=== PATIENT | male | born 1995 | race Caucasian/White ===

== ENCOUNTER 2017-06-20 12:02 | Emergency (ER) | payer SELFPAY ==
[~2017-06-20] VITALS: Ht 165.1 cm; Wt 65.0 kg
[2017-06-20 12:10] VITALS: BP 143/88; PULSE 111; RESP 16; TEMP 98.2; O2SAT 99
[2017-06-20] MEDS ORDERED: AZITHROMYCIN PWD FOR SUSP 1 GM PACKET PO ONE (12:45)
[2017-06-20] MEDS ORDERED: SODIUM CHLORIDE 0.9% FLUSH 10 ML FLUSH IVF PRN (12:45)
[2017-06-20] MEDS ORDERED: LIDOCAINE HCL 1% PF 30 ML VIAL XX ONE (12:45)
[2017-06-20] MEDS ORDERED: metroNIDAZOLE 500 MG TAB PO ONE (12:45)
--- NOTE | 2017-06-20 12:49 | PD ---
HPI Chief Complaint: Complaint Time Seen by Provider: 12:34 Travel History International Travel<30 days: No Contact w/Intl Traveler<30days: No Traveled to known affect area: No History of Present Illness HPI Patient comes emergency department with concerns for possible gonorrhea and chlamydia. Reports his partner tested positive yesterday and was treated. Patient denies any symptoms currently. Denies any dysuria, testicular pain, abdominal pain, penile discharge, back pain, or fevers. Patient denies doing anything for this prior to coming to the emergency department. Denies anything making symptoms better or worse. [facility] Past Medical History Medical History: Denies Significant Hx Social History Alcohol Use: No Tobacco Use: Yes Substance Use: No Allergies-Medications (Allergen,Severity, Reaction): Coded Allergies: No Known Allergies (Unverified , 06/20/17) Reported Meds & Prescriptions Reported Meds & Active Scripts Active No Active Prescriptions or Reported Medications Review of Systems Except as stated in HPI: all other systems reviewed are Neg Physical Exam Narrative GENERAL: Well-developed, well nourished, in no acute distress, and non-ill appearing. SKIN: Focused skin assessment warm and dry. HEAD: Atraumatic. Normocephalic. EYES: Pupils equal and round. EOMI. No scleral icterus. No injection or drainage. ENT: No nasal bleeding or discharge. Mucous membranes pink and moist. NECK: Trachea midline. Supple. No nuclear rigidity. RESPIRATORY: No accessory muscle use. No respiratory distress. GASTROINTESTINAL: Abdomen soft, non-tender, nondistended, and no guarding. Hepatic and splenic margins not palpable. No pulsatile mass. MUSCULOSKELETAL: No obvious deformities. No clubbing. No cyanosis. No edema. Full range of motion. NEUROLOGICAL: Awake and alert. No obvious cranial nerve deficits. Motor grossly within normal limits. Normal speech. PSYCHIATRIC: Appropriate mood and affect; insight and judgment normal. Data Data Last Documented VS Vital Signs Date Time Temp Pulse Resp B/P (MAP) Pulse Ox O2 Delivery O2 Flow Rate FiO2 06/20/17 12:10 98.2 111 16 143/88 (106) 99 Orders Orders Ed Discharge Order (06/20/17 12:44) Azithromycin Powd Pack (Zithromax Powd P (06/20/17 12:45) Metronidazole (Flagyl) (06/20/17 12:45) Sodium Chloride 0.9% Flush (Ns Flush) (06/20/17 12:45) Ceftriaxone Inj (Rocephin Inj) (06/20/17 12:45) Lidocaine Pf 1% Inj (Xylocaine-Mpf 1% In (06/20/17 12:45) MDM Medical Decision Making Medical Screen Exam Complete: Yes Emergency Medical Condition: No Differential Diagnosis Gonorrhea, chlamydia, STD exposure Narrative Course Patient in no obvious distress upon re-evaluation. Any questions/concerns in reference to patient diagnosis/condition discussed and clarified prior to patient's discharge. Reinforced sheer importance of close follow up with patient 's primary physician or primary care clinic and/or health department. Instructed patient to return to ED immediately, if symptoms return/worsen. Patient showed understanding of above instructions. Further instructions and recommendations were detailed in discharge paperwork. Patient ambulated without difficulty out of ED at discharge. Diagnosis Primary Impression: STD exposure Referrals: [facility] Dept. Patient Instructions: General Instructions, Sexually Transmitted Diseases (DC) Additional Instructions: Follow-up with your primary care physician and/or health Department for additional STD testing. Notify all sexual partners have them tested and treated. Do not have intercourse until 1 week after all sexual partners tested and treated. Practice safe sex to prevent further STDs and/or unwanted pregnancies. Return to the emergency department if symptoms get worse. Scripts No Active Prescriptions or Reported Meds Disposition: 01 DISCHARGE HOME Condition: Dequan Erickson Jun 20, 2017 12:49
== END 2017-06-20 13:42 | disposition home or self-care (01) ==
LOC: PHEFT 12:02
DX: Z20.2 Contact with and (suspected) exposure to infections with a predominantly sexual mode of transmission (principal); Z72.0 Tobacco use
CPT/HCPCS: 96372; 99283; J0696

== ENCOUNTER 2017-08-24 18:55 | Emergency (ER) | payer SELFPAY ==
[~2017-08-24] VITALS: Ht 165.1 cm; Wt 66.9 kg
[2017-08-24 19:11] VITALS: BP 142/70; PULSE 81; RESP 16; TEMP 98.5; O2SAT 98
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
== END 2017-08-24 20:36 | disposition home or self-care (01) ==
LOC: PHEFT 18:55
DX: S60.221A Contusion of right hand, initial encounter (principal); W22.09XA Striking against other stationary object, initial encounter; Z72.0 Tobacco use
CPT/HCPCS: 73130; 99283